=== PATIENT | female | born 1980 | race Two or more races ===

== ENCOUNTER 2018-11-13 21:35 | Emergency (ER) | payer SELFPAY ==
[~2018-11-13] VITALS: Ht 157.5 cm; Wt 85.0 kg
--- NOTE | 2018-11-13 22:27 | NUR ---
PT. TO ROOM FROM LOBBY.
--- NOTE | 2018-11-13 22:37 | NUR ---
DR. DIAZ IN TO [facility] PT. AND DISCUSS POC.
[2018-11-13 23:22] LABS: BASOPHILS # (AUTO) 0.04 x10^3/uL (0-0.1); BASOPHILS % (AUTO) 0 % (0-1); EOSINOPHILS % (AUTO) 1 % (1-7); LYMPHOCYTES # (AUTO) 4.76 x10^3/uL (1-3.4); LYMPHOCYTES % (AUTO) 52 % (22-44); MD NO; MEAN CORPUSCULAR HEMOGLOBIN 31.8 pg (27.0-34.8); MEAN CORPUSCULAR HGB CONC 34.3 g/dL (32.4-35.8); MEAN CORPUSCULAR VOLUME 92.8 fL (80-100); MEAN PLATELET VOLUME 7.2 fL (7.4-10.4); MONOCYTES % (AUTO) 6 % (2-9); NEUTROPHILS # (AUTO) 3.73 x10^3/uL (1.8-6.8); NEUTROPHILS % (AUTO) 41 % (42-75); PLATELET COUNT 319 x10^3/uL (130-400); RED BLOOD COUNT 4.31 x10^6/uL (3.82-5.3); RED CELL DISTRIBUTION WIDTH 12.4 % (9.6-15.2)
[2018-11-13 23:35] LABS: ALANINE AMINOTRANSFERASE 53 U/L (12-78); ALBUMIN 3.3 g/dL (3.4-5.0); ANION GAP 8 mmol/L (5-15); CALCIUM 8.6 mg/dL (8.5-10.1); CHLORIDE 107 mmol/L (98-107); CREATININE 0.66 mg/dL (0.55-1.02)
[2018-11-13 23:37] LABS: ALKALINE PHOSPHATASE 57 U/L (45-117)
[2018-11-13 23:38] LABS: BILIRUBIN,TOTAL < 0.1 mg/dL (0.2-1.0)
--- NOTE | 2018-11-13 23:44 | NUR ---
PT. UP FOR RECHECK BY ERMD AT THIS TIME.
--- NOTE | 2018-11-14 00:03 | NUR ---
PT. RESTING ON GURNEY WITH NADN. VSS. DENIES NEEDS. AWAITING RECHECK BY ERP.
[2018-11-14 00:15] VITALS: BP 126/48
--- NOTE | 2018-11-14 00:15 | NUR ---
DR. DIAZ AT TO DISCUSS PLAN FOR D/C WITH PT.
== END 2018-11-14 00:24 | disposition home or self-care (01) ==
LOC: ED 23:51
DX: R42 Dizziness and giddiness (principal)
CPT/HCPCS: 36415; 80053; 83735; 85025; 93005; 99284

== ENCOUNTER 2020-06-21 04:07 | Emergency (ER) | payer SELFPAY ==
[~2020-06-21] VITALS: Ht 157.5 cm; Wt 87.1 kg
--- NOTE | 2020-06-21 06:05 | NUR ---
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
[2020-06-21] MEDS ORDERED: MORPHINE SULFATE 4 MG/ML, 1ML IVPush PRN (06:30)
[2020-06-21] MEDS ORDERED: SODIUM CHLORIDE FLUSH 10ML SYR IVF ONE (06:30)
[2020-06-21] MEDS ORDERED: ONDANSETRON 2MG/ML, 2ML IVPush ONE (06:30)
[2020-06-21] MEDS ORDERED: FAMOTIDINE 20 MG/2 ML IVPush ONE (06:30)
--- NOTE | 2020-06-21 06:30 | NUR ---
PT AMBULATED TO ROOM. PT HAS MULTIPLE COMPLAINTS OF FUENTES, VOMITING AND EPIGASTRIC DISCOMFORT. VSS. PA AT BEDSIDE
[2020-06-21 06:39] LABS: BASOPHILS % (AUTO) 1 % (0-1); EOSINOPHILS % (AUTO) 1 % (1-7); LYMPHOCYTES % (AUTO) 51 % (22-44); MEAN CORPUSCULAR HEMOGLOBIN 32.2 pg (27.0-34.8); MEAN CORPUSCULAR HGB CONC 34.3 g/dL (32.4-35.8); MEAN PLATELET VOLUME 6.9 fL (7.4-10.4); MONOCYTES % (AUTO) 6 % (2-9); NEUTROPHILS % (AUTO) 41 % (42-75); PLATELET COUNT 349 x10^3/uL (130-400); RED BLOOD COUNT 4.26 x10^6/uL (3.82-5.3); RED CELL DISTRIBUTION WIDTH 12.8 % (9.6-15.2)
[2020-06-21 06:40] LABS: MD NO
[2020-06-21 06:44] LABS: ALANINE AMINOTRANSFERASE 53 U/L (12-78); ALBUMIN 3.5 g/dL (3.4-5.0); ANION GAP 8 mmol/L (5-15); CALCIUM 8.5 mg/dL (8.5-10.1); CHLORIDE 108 mmol/L (98-107); CREATININE 0.66 mg/dL (0.55-1.02)
--- NOTE | 2020-06-21 06:45 | NUR ---
PT UP TO BATHROOM.
[2020-06-21 06:49] LABS: ALKALINE PHOSPHATASE 52 U/L (45-117); BILIRUBIN,TOTAL 0.5 mg/dL (0.2-1.0); TOTAL PROTEIN 7.3 g/dL (6.4-8.2)
[2020-06-21] MEDS ORDERED: ONDANSETRON 2MG/ML, 2ML ONE (06:52)
[2020-06-21] MEDS ORDERED: FAMOTIDINE 20 MG/2 ML ONE (06:52)
[2020-06-21] MEDS ORDERED: MORPHINE SULFATE 4 MG/ML, 1ML ONE (06:52)
--- NOTE | 2020-06-21 07:17 | NUR ---
Report from [facility] NYE. Pt medicated per SEP for 7/10 epigastric pain. Pt positioned for comfort in bed, denies other needs.
--- NOTE | 2020-06-21 07:20 | NUR ---
Ania MAIN at bedside to discuss POC with pt.
[2020-06-21 07:35] VITALS: BP 111/58
--- NOTE | 2020-06-21 07:36 | NUR ---
Pt reports pain and nausea resolved after medications. Pt reports she feels ready for dc.
== END 2020-06-21 07:41 | disposition home or self-care (01) ==
LOC: ED 06:03
DX: K29.00 Acute gastritis without bleeding (principal); N93.9 Abnormal uterine and vaginal bleeding, unspecified; R10.13 Epigastric pain; R94.31 Abnormal electrocardiogram [ECG] [EKG]; F17.290 Nicotine dependence, other tobacco product, uncomplicated
CPT/HCPCS: 36415; 71045; 76700; 80053; 83690; 84703; 85025; 93005; 96374; 96375; 99285; J2270; J2405